=== PATIENT | male | born 1990 | race American Indian/Alaskan Native ===

== ENCOUNTER 2016-11-16 21:48 | Emergency (ER) | payer MEDICAID ==
[2016-11-16 22:00] VITALS: BMI 31.3
[2016-11-16] MEDS ORDERED: Sodium Chloride 0.9% 1,000 ML IV STA ×2 (22:23→22:27)
--- NOTE | 2016-11-16 22:27 | ED PDOC ---
Arrival/HPI - General Chief Complaint: Respiratory Distress Time Seen by Provider: 11/16/16 22:23 Historian: Patient - History of Present Illness Narrative History of Present Illness (Text): 11/16/16 22:24 26 year old male, pmh including asthma, nkda, no recent traveling for the past 4 weeks, complaining of coughing/nasal congestion/fever and headache x 2 days. Productive coughing, associated with runny nose, tmax 102F, no antipyretic taken for the past 6 hours, admits frontal headache but no neck stiffness or rash, no abdominal pain, no night sweat, no dizziness, no urinary symptoms, no other medical or psychological complaints. Past Medical History - Provider Review Nursing Documentation Reviewed: Yes - Cardiac Hx Cardiac Disorders: No - Pulmonary Hx Respiratory Disorders: Yes Hx Asthma: Yes - Neurological Hx Neurological Disorder: No - HEENT Hx HEENT Disorder: No - Renal Hx Renal Disorder: No - Endocrine/Metabolic Hx Endocrine Disorders: No - Hematological/Oncological Hx Blood Disorders: No - Integumentary Hx Dermatological Disorder: No - Musculoskeletal/Rheumatological Hx Musculoskeletal Disorders: No - Gastrointestinal Hx Gastrointestinal Disorders: No - Genitourinary/Gynecological Hx Genitourinary Disorders: No - Psychiatric Hx Psychophysiologic Disorder: No Hx Substance Use: No - Surgical History Other/Comment: eye surgery Family/Social History - Physician Review Nursing Documentation Reviewed: Yes Family/Social History: Unknown Family HX Smoking Status: Never Smoked Hx Alcohol Use: Yes Frequency of alcohol use: Socially Hx Substance Use: No Allergies/Home Meds Allergies/Adverse Reactions: Allergies shrimp Allergy (Verified 11/16/16 22:01) RASH Home Medications: Home Meds Medication Instructions Recorded Confirmed Albuterol HFA [Ventolin HFA 90 1 puff TID PRN MDD 3 11/16/16 11/16/16 mcg/actuation (8 g)] Review of Systems - Review of Systems Constitutional: Fatigue, Fevers Eyes: absent: Vision Changes ENT: Rhinorrhea. absent: Hearing Changes Respiratory: Cough, Sputum. absent: SOB, Wheezing Cardiovascular: absent: Chest Pain Gastrointestinal: absent: Abdominal Pain, Nausea, Vomiting Musculoskeletal: Arthralgias, Myalgias. absent: Back Pain, Neck Pain, Joint Swelling Skin: absent: Rash, Pruritis, Skin Lesions Neurological: Headache. absent: Dizziness, Gait Changes, Speech Changes Physical Exam Vital Signs Reviewed: Yes Vital Signs Temp Pulse Resp BP Pulse Ox 11/17/16 01:55 98.2 F 92 H 17 124/72 100 11/17/16 00:38 102 H 18 138/63 100 11/16/16 22:47 19 97 11/16/16 22:22 100.9 F H 126 H 18 150/88 98 Temperature: Febrile Blood Pressure: Normal Pulse: Tachycardic Respiratory Rate: Normal Appearance: Positive for: Well-Appearing, Non-Toxic, Comfortable Pain Distress: Moderate Mental Status: Positive for: Alert and Oriented X 3 - Systems Exam Head: Present: Atraumatic, Normocephalic Pupils: Present: PERRL Extroacular Muscles: Present: EOMI Conjunctiva: Present: Normal Ears: Present: Other (Ears: bilateral TMs erythematous and intact, bilateral auditory canals non-erythematous, no mastoid tendernes. ) Mouth: Present: Moist Mucous Membranes Pharnyx: Present: Soft Palate/Uvular Edema. No: ERYTHEMA, EXUDATE, TONSILS ENLARGED, Uvular Deviation, Muffled/Hoarse Voice Nose (External): No: Abrasion, Contusion, Laceration Nose (Internal): Present: No Active Bleeding, Rhinorrhea. No: Septal Hematoma, Epistaxis Neck: Present: Normal Range of Motion, Trachea Midline. No: Meningeal Signs, MIDLINE TENDERNESS, Paraspinal Tenderness, Lymphadenopathy Respiratory/Chest: Present: Clear to Auscultation, Good Air Exchange, Rhonchi ( mild rhonchi on the lt. lower lobe region. ). No: Respiratory Distress, Accessory Muscle Use, Wheezes, Decreased Breath Sounds, Retracting Cardiovascular: Present: Regular Rate and Rhythm, Normal S1, S2. No: Murmurs Abdomen: Present: Normal Bowel Sounds. No: Tenderness, Distention, Peritoneal Signs Back: Present: Normal Inspection Upper Extremity: Present: Normal Inspection. No: Cyanosis, Edema Lower Extremity: Present: Normal Inspection. No: Edema Neurological: Present: GCS=15, Speech Normal, Motor Func Grossly Intact, Gait Normal, Memory Normal Skin: Present: Warm, Dry, Normal Color. No: Rashes Psychiatric: Present: Alert, Oriented x 3, Normal Insight, Normal Concentration Medical Decision Making ED Course and Treatment: 11/16/16 22:27 -labs/ua/flu swab -chest x-ray -IVF/tylenol -Observe and reassess 11/17/16 01:44 -chest x-ray show no active disease -Labs are non-significant except wbc 12.8 -LIpase and Urinalysis show no acute findings. -Otitis media noted bilaterally, rocephin IV ordered. -Vitally stable with fever and tachycardic resolved. -Discharge home with augmentin, claritin d24, promethazine, motrin, stay hydrated, follow up with your own pmd and ENT within 2 days, return to the ER for any new or worsening signs or symptoms. - Lab Interpretations Lab Results: 11/16/16 22:36 11/16/16 22:36 Lab Results 11/17/16 00:45: Lipase 56 11/17/16 00:45: Urine Color Yellow, Urine Appearance Clear, Urine pH 7.0, Ur Specific [place] <= 1.005, Urine Protein Negative, Urine Glucose (UA) Negative, Urine Ketones Negative, Urine Blood Trace-lysed H, Urine Nitrate Negative, Urine Bilirubin Negative, Urine Urobilinogen 0.2, Ur Leukocyte Esterase Negative , Urine RBC 0 - 2, Urine WBC Negative, Urine Bacteria Trace 11/16/16 22:36: Sodium 136, Potassium 3.9, Chloride 98, Carbon Dioxide 29, Anion Gap 13, BUN 11, Creatinine 1.2, Est GFR ( Amer) > 60, Est GFR (Non- Af Amer) > 60, Random Glucose 110, Calcium 9.0, Total Bilirubin 1.2, AST 41, ALT 68 H, Alkaline Phosphatase 97, Total Protein 8.5 H, Albumin 4.4, Globulin 4.2, Albumin/Globulin Ratio 1.0 L 11/16/16 22:36: Influenza Typ A,B (EIA) Negative for flu a/b 11/16/16 22:36: WBC 12.8 H, RBC 5.19, Hgb 15.2, Hct 41.9 L, MCV 80.7, MCH 29.3, MCHC 36.3, RDW 13.5, Plt Count 243, MPV 10.5, Gran % 85.4 H, Lymph % (Auto) 6.7 L, Grady % (Auto) 6.3 H, Eos % (Auto) 1.4 L, Baso % (Auto) 0.2, Gran # 10.90 H, Lymph # 0.9 L, Grady # 0.8 H, Eos # 0.2, Baso # 0.02 I have reviewed the lab results: Yes Interpretation: Abnormal lab values (wbc 12.8) - RAD Interpretation Radiology Orders: 11/16/16 22:23 CHEST PORTABLE [RAD] Stat FINDINGS: Lungs: Unremarkable. No consolidation. Pleural space: Unremarkable. No pneumothorax. Heart: Unremarkable. No cardiomegaly. Mediastinum: Unremarkable. Bones/joints: Unremarkable. IMPRESSION: There are no acute concerning abnormalities. Thank you for allowing us to participate in the care of your patient. Dictated and Authenticated by: Anne Cardenas MD 11/17/2016 12:00 AM Eastern Time ([place] & [place]) [employer]er [employer]bags: Radiologist - Medication Orders Current Medication Orders: Discontinued Medications Acetaminophen (Tylenol 325mg Tab) 650 mg PO STAT STA Stop: 11/16/16 22:24 Last Admin: 11/16/16 22:41 Dose: 650 mg Sodium Chloride (Sodium Chloride 0.9%) 1,000 mls @ 999 mls/hr IV .Q1H1M STA Stop: 11/16/16 23:23 Last Admin: 11/16/16 22:39 Dose: 999 mls/hr Sodium Chloride (Sodium Chloride 0.9%) 1,000 mls @ 500 mls/hr IV .Q2H STA Stop: 11/17/16 00:26 Last Admin: 11/16/16 23:16 Dose: 500 mls/hr Ceftriaxone Sodium (Rocephin 1 Gram Ivpb) 1 gm in 100 mls @ 200 mls/hr IVPB STAT STA PRN Reason: Protocol Stop: 11/17/16 00:37 Last Admin: 11/17/16 00:29 Dose: 200 mls/hr Ketorolac Tromethamine (Toradol) 30 mg IVP STAT STA Stop: 11/16/16 23:19 Last Admin: 11/16/16 23:25 Dose: 30 mg Re-Assess: URSULA Pain Assessment Document 11/17/16 00:25 RD (Rec: 11/17/16 00:30 RD [id number]) Pain Reassessment Is this a pain reassessment? No Sleep Is patient sleeping during reassessment? No Presence of Pain Presence of Pain Yes Pain Scale Used Pain Scale Used Numeric - PA / [employer] TE[employer]ADER / Resident Statement MD/DO has reviewed & agrees with the documentation as recorded. Disposition/Present on Arrival - Present on Arrival Any Indicators Present on Arrival: No History of DVT/PE: No History of Uncontrolled Diabetes: No Urinary Catheter: No History of Decub. Ulcer: No History Surgical Site Infection Following: None - Disposition Have Diagnosis and Disposition been Completed?: Yes Diagnosis: URI, acute, Otitis media Disposition: HOME/ ROUTINE Disposition Time: 01:46 Patient Plan: Discharge Patient Problems: Current Active Problems Problem Status Onset URI, acute Acute Otitis media Acute Condition: IMPROVED Additional Instructions: Discharge home with augmentin, claritin d24, promethazine, prednisone, motrin, stay hydrated, follow up with your own pmd and ENT within 2 days, return to the ER for any new or worsening signs or symptoms. Prescriptions: Amoxicillin/Clavulanate [Augmentin 875 MG-125 MG] 1 tab PO BID #20 tab Ibuprofen [Motrin Tab] 600 mg PO QID PRN #24 tab PRN Reason: Other Loratadine/Pseudoephedrine [Claritin-D 24 Hour Tablet] 1 each PO DAILY #8 tab.er.24h predniSONE [Prednisone] 2 tab PO DAILY #8 tab Promethazine DM [Phenergan DM Syrup] 5 ml PO QID PRN #150 ml PRN Reason: Other Referrals: Yaya Sim DO [Staff Provider] - Follow up with primary [facility] [place] - Follow up with primary Forms: [facility] (Emirati), WORK NOTE
[2016-11-16 22:54] LABS: ADD MANUAL DIFF? NO
[2016-11-16 23:04] LABS: BASO # 0.02 K/mm3 (0.0-2.0); BASO % 0.2 % (0.0-3.0); EOS # 0.2 (0.0-0.7); EOS % 1.4 % (1.5-5.0); GRAN % 85.4 % (50.0-68.0); HEMATOCRIT 41.9 % (42.0-52.0); LYMPH # 0.9 (1.2-3.4); LYMPH % 6.7 % (22.0-35.0); MEAN CELL VOLUME 80.7 fL (80.0-105.0); MEAN CORPUSCULAR HEMOGLOBIN 29.3 pg (25.0-35.0); MEAN CORPUSCULAR HGB CONC 36.3 g/dl (31.0-37.0); MEAN PLATELET VOLUME 10.5 fl (7.0-11.0); MONO # 0.8 (0.1-0.6); MONO % 6.3 % (1.0-6.0); PLATELET COUNT 243 10^3/uL (120.0-450.0); RED CELL DISTRIBUTION WIDTH 13.5 % (11.5-14.5); WHITE BLOOD COUNT 12.8 10^3/ul (4.5-11.0)
[2016-11-16 23:08] LABS: ALKALINE PHOSPHATASE 97 U/L (38-133); ALT/SGPT 68 U/L (7-56); AST/SGOT 41 U/L (15-59); BILIRUBIN,TOTAL 1.2 mg/dL (0.2-1.3); BLOOD UREA NITROGEN 11 mg/dL (7-21); CARBON DIOXIDE 29 mmol/L (21-33); CHLORIDE 98 mmol/L (98-107); GFR AFRICAN-AMERICAN > 60; GLUCOSE,RANDOM 110 mg/dL (70-110); POTASSIUM 3.9 mmol/L (3.6-5.0); SODIUM 136 mmol/L (132-148); TOTAL PROTEIN 8.5 g/dL (5.8-8.3)
[2016-11-17] MEDS ORDERED: cefTRIAXone 1 gm 1 GM/100 ML BAG IVPB STA (00:08)
[2016-11-17 00:38] VITALS: O2SAT 100
[2016-11-17 00:59] LABS: URINE APPEARANCE CLEAR (CLEAR); URINE BILIRUBIN NEGATIVE (NEGATIVE); URINE BLOOD TRACE-LYSED (NEGATIVE); URINE COLOR YELLOW (YELLOW); URINE GLUCOSE (UA) NEGATIVE (NEGATIVE); URINE KETONE NEGATIVE (NEGATIVE); URINE LEUKOCYTE ESTERASE NEGATIVE Leu/uL (NEGATIVE); URINE PROTEIN NEGATIVE mg/dL (<30 mg/dL); URINE UROBILINOGEN 0.2 E.U./dL (<1 E.U./dL)
[2016-11-17 01:19] LABS: URINE BACTERIA TRACE (NEG); URINE RBC 0 - 2 /hpf (0-2); URINE WBC NEGATIVE /hpf (0-6)
[2016-11-17 01:58] VITALS: BP 124/72; PULSE 92; RESP 17; TEMP 98.2
--- NOTE | 2016-11-17 08:39 | RAD ---
PROCEDURE: CHEST RADIOGRAPH, 1 VIEW HISTORY: cough/fever COMPARISON: None available. FINDINGS: LUNGS: Clear. PLEURA: No pneumothorax or pleural fluid seen. CARDIOVASCULAR: Normal. OSSEOUS STRUCTURES: No significant abnormalities. VISUALIZED UPPER ABDOMEN: Normal. OTHER FINDINGS: None. IMPRESSION: No active disease.
== END 2016-11-17 02:03 | disposition home or self-care (01) ==
LOC: ED 21:48
DX: J06.9 Acute upper respiratory infection, unspecified (principal); H66.90 Otitis media, unspecified, unspecified ear
CPT/HCPCS: 71010; 80053; 81001; 83690; 85025; 87804; 96361; 96365; 96375; 99284; J0696; J1885; J7040

== ENCOUNTER 2017-03-03 08:03 | Emergency (ER) | payer MEDICAID, OTHER ==
[2017-03-03 08:03] VITALS: BMI 31.3
[2017-03-03] MEDS ORDERED: Sodium Chloride 0.9% 1,000 ML IV STA (08:43)
[2017-03-03 08:45] VITALS: RESP 18; TEMP 97.9
--- NOTE | 2017-03-03 08:46 | ED PDOC ---
Arrival/HPI - General Time Seen by Provider: 03/03/17 08:27 Historian: Patient - History of Present Illness Narrative History of Present Illness (Text): 03/03/17 08:33 Kamryn Noble is a 26 year old male, whose past medical history includes asthma , who presents to the emergency department complaining of right lower back pain that radiates up his back today. Patient states that his symptoms are chronic for about 2 years but symptoms were worse than normal today. Patient notes that pain worsens with movement and he has been experiencing associated urinary frequency for the past year. Patient states that he saw his PMD four days ago and was told to get an ultrasound but has not done so yet. Patient denies any fever, nausea, vomiting, diarrhea, hematuria, or any other complaints at this time. PMD: Dr. Pepper Time/Duration: 4-6 hours Symptom Onset: Gradual Symptom Course: Unchanged, Intermittent Severity Level: Mild Activities at Onset: Light Context: Home Past Medical History - Provider Review Nursing Documentation Reviewed: Yes - Cardiac Hx Cardiac Disorders: No - Pulmonary Hx Respiratory Disorders: Yes Hx Asthma: Yes - Neurological Hx Neurological Disorder: No - HEENT Hx HEENT Disorder: No - Renal Hx Renal Disorder: No - Endocrine/Metabolic Hx Endocrine Disorders: No - Hematological/Oncological Hx Blood Disorders: No - Integumentary Hx Dermatological Disorder: No - Musculoskeletal/Rheumatological Hx Musculoskeletal Disorders: No - Gastrointestinal Hx Gastrointestinal Disorders: No - Genitourinary/Gynecological Hx Genitourinary Disorders: No - Psychiatric Hx Psychophysiologic Disorder: No Hx Substance Use: No - Surgical History Other/Comment: eye surgery - Suicidal Assessment Feels Threatened In Home Enviroment: No Family/Social History - Physician Review Nursing Documentation Reviewed: Yes Family/Social History: No Known Family HX Smoking Status: Former Smoker Hx Alcohol Use: No Hx Substance Use: No Allergies/Home Meds Allergies/Adverse Reactions: Allergies shrimp Allergy (Verified 11/16/16 22:01) RASH Home Medications: Home Meds Medication Instructions Recorded Confirmed Albuterol HFA [Ventolin HFA 90 1 puff IH Q4 PRN 08/31/15 07/20/16 mcg/actuation (8 g)] Albuterol HFA [Ventolin HFA 90 1 puff TID PRN MDD 3 11/16/16 11/16/16 mcg/actuation (8 g)] Review of Systems - Physician Review All systems were reviewed & negative as marked: Yes - Review of Systems Constitutional: absent: Fevers, Night Sweats Eyes: absent: Vision Changes ENT: absent: Hearing Changes Respiratory: absent: SOB, Cough Cardiovascular: absent: Chest Pain Gastrointestinal: absent: Abdominal Pain Genitourinary Male: absent: Dysuria, Frequency, Hematuria Musculoskeletal: Back Pain (right lower back pain) Skin: absent: Rash, Pruritis Neurological: absent: Headache Endocrine: absent: Diaphoresis Hemo/Lymphatic: absent: Adenopathy Physical Exam Vital Signs Reviewed: Yes Vital Signs Temp Pulse Resp BP Pulse Ox 03/03/17 10:50 75 18 137/87 99 03/03/17 08:39 97.9 F 78 18 132/80 98 Temperature: Afebrile Blood Pressure: Normal Pulse: Regular Respiratory Rate: Normal Appearance: Positive for: Well-Appearing, Non-Toxic, Comfortable Pain Distress: None Mental Status: Positive for: Alert and Oriented X 3 - Systems Exam Head: Present: Atraumatic, Normocephalic Pupils: Present: PERRL Extroacular Muscles: Present: EOMI Conjunctiva: Present: Normal Mouth: Present: Moist Mucous Membranes Neck: Present: Normal Range of Motion Respiratory/Chest: Present: Clear to Auscultation, Good Air Exchange. No: Respiratory Distress, Accessory Muscle Use Cardiovascular: Present: Regular Rate and Rhythm, Normal S1, S2. No: Murmurs Abdomen: Present: Normal Bowel Sounds. No: Tenderness, Distention, Peritoneal Signs Back: Present: Paraspinal Tenderness (right lower paraspinal back tenderness). No: CVA Tenderness Upper Extremity: Present: Normal Inspection. No: Cyanosis, Edema Lower Extremity: Present: Normal Inspection. No: Edema Neurological: Present: GCS=15, CN II-XII Intact, Speech Normal Skin: Present: Warm, Dry, Normal Color. No: Rashes Psychiatric: Present: Alert, Oriented x 3, Normal Insight, Normal Concentration Medical Decision Making ED Course and Treatment: 03/03/17 08:33 Impression: 26 year old male complaining of right lower back pain today. Differential Diagnosis included but are not limited to: Musculoskeletal vs. Renal Colic Plan: -- Abdomen and Pelvis CT -- Labs -- Tylenol, Toradol, and IV Fluids -- Reassess and disposition Prior Visits: Notes and results from previous visits were reviewed. Patient last seen in the ED on 11/16/16 for coughing, nasal congestion, fever, and headache for 2 days. Patient was discharged home. Progress Notes: 03/03/17 11:19 CT Abdomen and Pelvis without intravenous contrast: Dictator : Alex Azar MD FINDINGS: LOWER THORAX:Unremarkable. LIVER:Unremarkable. No gross lesion or ductal dilatation. GALLBLADDER AND BILE DUCTS:Unremarkable. PANCREAS:Unremarkable. No gross lesion or ductal dilatation. SPLEEN:Unremarkable. ADRENALS:Unremarkable. No mass. KIDNEYS AND URETERS:Unremarkable. No hydronephrosis. No solid mass. VASCULATURE:Unremarkable. No aortic aneurysm. BOWEL:Unremarkable. No obstruction. No gross mural thickening. APPENDIX:Unremarkable. Normal appendix. PERITONEUM:Unremarkable. No free fluid. No free air. LYMPH NODES:Unremarkable. No enlarged lymph nodes. BLADDER:Unremarkable. REPRODUCTIVE:Unremarkable. BONES:No acute fracture. OTHER FINDINGS:None. IMPRESSION: No acute findings. No evidence of renal or ureteral stone 03/03/17 11:20 Patient was given results of CT and given time to ask questions. He no longer has pain and is able to walk with no pain. No ataxia. Labs reviewed. UA negative. patient will f/u with his PMD this week. Advised to return to the ED if symptoms worsen or any other concern. - Lab Interpretations Lab Results: 03/03/17 08:55 03/03/17 08:55 Lab Results 03/03/17 08:55: Sodium 145, Potassium 4.0, Chloride 105, Carbon Dioxide 27, Anion Gap 17, BUN 9, Creatinine 1.2, Est GFR ( Amer) > 60, Est GFR (Non- Af Amer) > 60, Random Glucose 87, Calcium 9.3, Total Bilirubin 0.7, AST 32, ALT 53, Alkaline Phosphatase 87, Total Protein 7.5, Albumin 4.4, Globulin 3.1, Albumin/Globulin Ratio 1.4 03/03/17 08:55: WBC 4.7 D, RBC 5.01, Hgb 14.5, Hct 40.2 L, MCV 80.2, MCH 28.9, MCHC 36.1, RDW 13.5, Plt Count 258, MPV 10.0, Gran % 46.0 L, Lymph % (Auto) 32.3 , Simpson % (Auto) 6.8 H, Eos % (Auto) 14.5 H, Baso % (Auto) 0.4, Gran # 2.15, Lymph # 1.5, Simpson # 0.3, Eos # 0.7, Baso # 0.02 03/03/17 08:35: Urine Color Yellow, Urine Appearance Clear, Urine pH 6.5, Ur Specific [place] 1.020, Urine Protein Negative, Urine Glucose (UA) Negative, Urine Ketones Negative, Urine Blood Negative, Urine Nitrate Negative, Urine Bilirubin Negative, Urine Urobilinogen 1.0 H, Ur Leukocyte Esterase Negative - RAD Interpretation Radiology Orders: 03/03/17 08:43 ABD & PELVIS W/O PO OR IV CONT [CT] Stat - Medication Orders Current Medication Orders: Discontinued Medications Acetaminophen (Tylenol 325mg Tab) 975 mg PO STAT STA Stop: 03/03/17 08:45 Last Admin: 03/03/17 09:02 Dose: 975 mg Albuterol/Ipratropium (Duoneb 3 Mg/0.5 Mg (3 Ml) Ud) 3 ml IH STAT STA Stop: 03/03/17 09:00 Last Admin: 03/03/17 09:07 Dose: 3 ml Sodium Chloride (Sodium Chloride 0.9%) 1,000 mls @ 100 mls/hr IV .Q10H STA Stop: 03/03/17 18:42 Last Admin: 03/03/17 09:01 Dose: 100 mls/hr Ketorolac Tromethamine (Toradol) 30 mg IVP STAT STA Stop: 03/03/17 08:45 Last Admin: 03/03/17 09:02 Dose: 30 mg - Scribe Statement The provider has reviewed the documentation as recorded by the Michaela Vargas Provider Scribe Attestation: All medical record entries made by the Benyibelia were at my direction and personally dictated by me. I have reviewed the chart and agree that the record accurately reflects my personal performance of the history, physical exam, medical decision making, and the department course for this patient. I have also personally directed, reviewed, and agree with the discharge instructions and disposition. Disposition/Present on Arrival - Present on Arrival Any Indicators Present on Arrival: No History of DVT/PE: No History of Uncontrolled Diabetes: No Urinary Catheter: No History Surgical Site Infection Following: None - Disposition Have Diagnosis and Disposition been Completed?: Yes Diagnosis: Back pain Disposition: HOME/ ROUTINE Disposition Time: 11:20 Patient Plan: Discharge Condition: IMPROVED Discharge Instructions (ExitCare): Acute Low Back Pain (ED) Additional Instructions: Mr Noble, thank you for letting us take care of you today. Your provider was Dr. Alas. You were treated for Back Pain, The emergency medical care you received today was directed at your acute symptoms. If you were prescribed any medication, please fill it and take as directed. It may take several days for your symptoms to resolve. Return to the Emergency Department if your symptoms worsen, do not improve, or if you have any other problems. Please contact your doctor or call one of the physicians/clinics you have been referred to that are listed on the Patient Visit Information form that is included in your discharge packet. Bring any paperwork you were given at discharge with you along with any medications you are taking to your follow up visit. Our treatment cannot replace ongoing medical care by a primary care provider (PCP) outside of the emergency department. Thank you for allowing the [facility] team to be part of your care today. If you had an X-Ray or CT scan: A Radiologist will review the ED reading if any change in treatment is needed we will contact you. If you had a blood, urine, or wound culture: It will take several days for the results, if any change in treatment is needed we will contact you. If you had an STI test: It will take 48 hours for the results. Please call after 1 week if you have not heard back. Prescriptions: Cyclobenzaprine [Flexeril] 5 mg PO TID PRN #20 tab PRN Reason: Muscle Spasm Naproxen 500 mg PO BID PRN #30 tab PRN Reason: Pain, Moderate (4-7) Referrals: Manuel Pepper MD [Primary Care Provider] - Follow up with primary Forms: [facility] (Italian), WORK NOTE
[2017-03-03] MEDS ORDERED: Albuterol-Ipratrop 3 mg / 0.5 (3 ml) UD IH STA (08:59)
[2017-03-03 09:05] LABS: BASO # 0.02 K/mm3 (0.0-2.0); BASO % 0.4 % (0.0-3.0); EOS # 0.7 (0.0-0.7); EOS % 14.5 % (1.5-5.0); GRAN # 2.15 (1.4-6.5); HEMATOCRIT 40.2 % (42.0-52.0); LYMPH # 1.5 (1.2-3.4); LYMPH % 32.3 % (22.0-35.0); MEAN CELL VOLUME 80.2 fl (80.0-105.0); MEAN CORPUSCULAR HEMOGLOBIN 28.9 pg (25.0-35.0); MEAN CORPUSCULAR HGB CONC 36.1 g/dl (31.0-37.0); MONO # 0.3 (0.1-0.6); MONO % 6.8 % (1.0-6.0); RED CELL DISTRIBUTION WIDTH 13.5 % (11.5-14.5); WHITE BLOOD COUNT 4.7 10^3/ul (4.5-11.0)
[2017-03-03 09:18] LABS: ALB/GLOB RATIO 1.4 (1.1-1.8); ALKALINE PHOSPHATASE 87 U/L (38-133); ALT/SGPT 53 U/L (7-56); AST/SGOT 32 U/L (15-59); BILIRUBIN,TOTAL 0.7 mg/dL (0.2-1.3); BLOOD UREA NITROGEN 9 mg/dL (7-21); CALCIUM 9.3 mg/dL (8.4-10.5); CARBON DIOXIDE 27 mmol/L (21-33); CHLORIDE 105 mmol/L (98-107); GFR AFRICAN-AMERICAN > 60; GLUCOSE,RANDOM 87 mg/dL (70-110); SODIUM 145 mmol/L (132-148); TOTAL PROTEIN 7.5 g/dL (5.8-8.3)
[2017-03-03 10:10] LABS: PH,URINE 6.5 (4.7-8.0); URINE BILIRUBIN NEGATIVE (NEGATIVE); URINE BLOOD NEGATIVE (NEGATIVE); URINE GLUCOSE (UA) NEGATIVE (NEGATIVE); URINE KETONE NEGATIVE (NEGATIVE); URINE LEUKOCYTE ESTERASE NEGATIVE Leu/uL (NEGATIVE); URINE PROTEIN NEGATIVE mg/dL (<30 mg/dL)
[2017-03-03 10:13] LABS: URINE APPEARANCE CLEAR (CLEAR); URINE COLOR YELLOW (YELLOW)
--- NOTE | 2017-03-03 10:28 | CT ---
PROCEDURE: CT Abdomen and Pelvis without intravenous contrast HISTORY: right flank pain r/o kidney stone COMPARISON: None. TECHNIQUE: Without contrast. Contrast Dose: Radiation dose: Total exam DLP = 731 mGy-cm. This CT exam was performed using one or more of the following dose reduction techniques: Automated exposure control, adjustment of the mA and/or kV according to patient size, and/or use of iterative reconstruction technique. FINDINGS: LOWER THORAX: Unremarkable. LIVER: Unremarkable. No gross lesion or ductal dilatation. GALLBLADDER AND BILE DUCTS: Unremarkable. PANCREAS: Unremarkable. No gross lesion or ductal dilatation. SPLEEN: Unremarkable. ADRENALS: Unremarkable. No mass. KIDNEYS AND URETERS: Unremarkable. No hydronephrosis. No solid mass. VASCULATURE: Unremarkable. No aortic aneurysm. BOWEL: Unremarkable. No obstruction. No gross mural thickening. APPENDIX: Unremarkable. Normal appendix. PERITONEUM: Unremarkable. No free fluid. No free air. LYMPH NODES: Unremarkable. No enlarged lymph nodes. BLADDER: Unremarkable. REPRODUCTIVE: Unremarkable. BONES: No acute fracture. OTHER FINDINGS: None. IMPRESSION: No acute findings. No evidence of renal or ureteral stone
[2017-03-03 11:45] VITALS: BP 137/87; PULSE 75; O2SAT 99
== END 2017-03-03 10:50 | disposition home or self-care (01) ==
LOC: ED 08:03
DX: M54.5 Low back pain (principal)
CPT/HCPCS: 74176; 80053; 81003; 85025; 96374; 99284; J1885; J7040